=== PATIENT | male | born 1980 | race Caucasian/White ===

== ENCOUNTER → 2018-01-27 09:03 | Outpatient (CLI) | payer BC, SELFPAY ==
--- NOTE | 2018-01-27 09:10 | XR_ITS ---
XR ankle wt bearing LT min 3V HISTORY: ITS.REASON: pain ORDERING PHYSICIAN: Ada Deluca DPM PATIENT AGE: 37 years Comparison: None FINDINGS: No ankle fracture or dislocation. No lytic or blastic change. There is normal mineralization.. The joint spaces are well-preserved. No significant degenerative/arthritic changes. No erosive changes evident. There is mild soft tissue swelling laterally. There is a nondisplaced fracture base fifth metatarsal IMPRESSION: 1. Nondisplaced fracture base of fifth metatarsal 2. Soft tissue swelling at the lateral malleolus region
--- NOTE | 2018-01-27 09:10 | XR_ITS ---
XR foot wt bearing RT 3V HISTORY: ITS.REASON: pain ORDERING PHYSICIAN: Ada Deluca DPM PATIENT AGE: 37 years COMPARISON: None FINDINGS: No fracture or dislocation. No lytic or blastic change. There is normal mineralization.. The joint spaces are well-preserved. No significant degenerative/arthritic changes. No erosive changes evident. IMPRESSION: Negative, no acute finding
--- NOTE | 2018-01-27 09:10 | XR_ITS ---
XR foot wt bearing LT 3V HISTORY: ITS.REASON: pain ORDERING PHYSICIAN: Ada Deluca DPM PATIENT AGE: 37 years COMPARISON: None FINDINGS: There is a nondisplaced transverse fracture involving the base of the fifth metatarsal is best seen on the lateral view. It is uncertain whether this involves the articular surface. No other significant anomalies are evident. IMPRESSION: Nondisplaced transverse fracture of the base of the fifth metatarsal
--- NOTE | 2018-01-27 09:10 | XR_ITS ---
XR ankle wt bearing RT min 3V HISTORY: ITS.REASON: pain ORDERING PHYSICIAN: Ada Deluca DPM PATIENT AGE: 37 years Comparison: None FINDINGS: No fracture or dislocation. No lytic or blastic change. There is normal mineralization.. The joint spaces are well-preserved. No significant degenerative/arthritic changes. No erosive changes evident. IMPRESSION: Negative ankle, no acute finding
== END ==
PROVIDERS: PCP Family Medicine; Visit Provider Podiatrist
DX: M25.579 Pain in unspecified ankle and joints of unspecified foot (principal)
CPT/HCPCS: 73610; 73630

== ENCOUNTER → 2018-02-21 08:19 | Outpatient (CLI) | payer BC, SELFPAY ==
--- NOTE | 2018-02-21 08:22 | XR_ITS ---
XR foot wt bearing LT 3V HISTORY: Pain following injury, follow-up fracture ITS.REASON: fracture follow-up ORDERING PHYSICIAN: Ada Deluca DPM PATIENT AGE: 37 years COMPARISON: 01/27/2018 FINDINGS: Nondisplaced transverse fracture once again noted at the base of the fifth metatarsal extending into the articular surface proximally. The fracture line is somewhat more apparent but less well-defined and may be due to early healing. IMPRESSION: Healing fracture nondisplaced base of fifth metatarsal
== END ==
PROVIDERS: PCP Family Medicine; Visit Provider Podiatrist
DX: S92.355A Nondisplaced fracture of fifth metatarsal bone, left foot, initial encounter for closed fracture (principal); T14.8XXA Other injury of unspecified body region, initial encounter
CPT/HCPCS: 73630

== ENCOUNTER 2018-03-12 08:30 | Outpatient (RCR) | payer BC, SELFPAY ==
--- NOTE | 2018-02-26 14:46 | [facility].PTOPEV ---
PT Outpatient Evaluation Rehab PT Outpatient Evaluation Start: 02/26/18 13:59 Freq: Status: Active Protocol: Document 02/26/18 14:35 PHORPHILLIP (Rec: 02/26/18 14:45 PHORNE [id number]) Electronically Signed By Dom Bray, PT 02/26/18 14:35 Outpatient Therapy Subjective History Subjective History Pt is 37 yom who presents with c/o soreness in the left ankle and foot ~ 1 mo S/P left ankle sprain with 5th MT fx. He is now able to bear weight with minimal discomfort, but has difficulty with inclines or stairs. He reports no significant PMH. Chief Complaint Pain Stiff Symptom Type Ache Symptoms Relieved By Rest/Positioning Symptoms Aggravated By Physical Activity Prior Functional Limitations None Current Functional Limitations Walking Stairs Symptom Description Activity Dependent Level of pain today (0-10) 0 Pain scale - at its worst (0-10) 3 Ankle/Foot Eval Gait Observation General Gait Pattern Observation Antalgic Gait Palpation Tenderness left ATF TTP positive ROM Ankle/Foot Dorsiflexion w/Knee Extended 0-14 Active Range Motion (degrees) Ankle/Foot Plantar Flexion Active Range 0-50 of Motion (degrees) Ankle/Foot Eversion Active Range of 0-23 Motion (degrees) Ankle/Foot Inversion Active Range of 0-43 Motion (degrees) MMT Ankle Dorsiflexion Strength Grade 5 Normal Ankle Plantarflexion Strength Grade 5 Normal Foot Eversion Strength Grade 5 Normal Foot Inversion Strength Grade 5 Normal Special Tests Ankle Anterior Drawer Test Negative Left Negative Right Talar Tilt Test Negative Left Negative Right Ankle Posterior Drawer Test Negative Left Negative Right Outpatient Therapy Assessment Impairments Problems/Impairmments Palpation Tenderness Impaired Walking Impaired Recreational Activities Impaired Running Subjective C/O Pain Impaired Self Care/Self Management Prognosis Rehab Potential Good Clinical Impression Consistent with Diagnosis Yes Short Term Goals Number of Weeks 4 Decreased Palpation Tenderness Yes: to min
== END 2018-03-12 08:35 | disposition home or self-care (01) ==
LOC: PT 08:30
PROVIDERS: Visit Provider Podiatrist
DX: S92.355D Nondisplaced fracture of fifth metatarsal bone, left foot, subsequent encounter for fracture with routine healing (principal); S93.492D Sprain of other ligament of left ankle, subsequent encounter
CPT/HCPCS: 97033; 97035; 97110; 97140; 97163

== ENCOUNTER → 2018-03-27 08:37 | Outpatient (CLI) | payer BC, SELFPAY ==
--- NOTE | 2018-03-27 08:40 | XR_ITS ---
XR foot wt bearing LT 3V HISTORY: Pain, follow-up fracture ITS.REASON: Fracture follow-up ORDERING PHYSICIAN: Ada Deluca DPM PATIENT AGE: 37 years COMPARISON: 02/21/2018 FINDINGS: Nondisplaced transverse fracture once again noted involving the base of the fifth metatarsal. The fracture line does appear somewhat less apparent on the lateral view. No other significant anomalies evident. IMPRESSION: Nondisplaced transverse fracture base of fifth metatarsal. Fracture line is still visible but somewhat less apparent
== END ==
PROVIDERS: PCP Family Medicine; Visit Provider Podiatrist
DX: S92.355A Nondisplaced fracture of fifth metatarsal bone, left foot, initial encounter for closed fracture (principal); T14.8XXA Other injury of unspecified body region, initial encounter
CPT/HCPCS: 73630